=== PATIENT | female | born 1970 | race Caucasian/White ===

== ENCOUNTER 2019-01-10 13:30 | Emergency (ER) | payer BC ==
[2019-01-10 14:00] VITALS: BP 104/75
--- NOTE | 2019-01-10 14:30 | UC ---
Abdominal Pain Female HPI - HPI Summary HPI Summary: Pt presents to with 24 hours of dysuria and frequency. Pt denies back pain. Pt states today, when wiping, noted pink on the toilet tissue. Pt denies vaginal discharge, itching odor. Pt with post menopausal x 6 years. Pt reports mild lower abd discomfort - pressure. No fevers, chills. No back pain. no trauma. no fb in vagina medications reviewed this visit - History of Current Complaint Chief Complaint: UCGU Stated Complaint: URINARY COMPLAINT Time Seen by Provider: 01/10/19 14:29 Hx Obtained From: Patient Hx Last Menstrual Period: no period ?: No Onset/Duration: Gradual Onset Pain Intensity: 6 Allergies/Adverse Reactions: Allergies Allergy/AdvReac Type Severity Reaction Status Date / Time No Known Allergies Allergy Verified 01/10/19 13:55 PMH/Surg Hx/FS Hx/Imm Hx Previously Healthy: Yes - Surgical History Surgical History: Yes Surgery Procedure, Year, and Place: Tubal ligation. T&A as a child - Family History Known Family History: Positive: Non-Contributory - Social History Occupation: Employed Full-time Lives: With Family Alcohol Use: None Substance Use Type: None Smoking Status (MU): Heavy Every Day Tobacco Smoker Amount Used/How Often: 1/2 [employer] Household Exposure Type: Cigarettes Review of Systems All Other Systems Reviewed And Are Negative: Yes Constitutional: Positive: Negative Genitourinary: Positive: Dysuria, Frequency, Urgency. Negative: Hematuria, Vaginal/Penile Burning, Vaginal/Penile Itching, Vaginal/Penile Discharge, Vaginal/Penile Pain, Vaginal/Penile Tenderness Physical Exam - Summary Physical Exam Summary: Vital Signs Reviewed: Yes A+Ox3, no distress Eyes: Conjunctiva Clear ENT: Hearing grossly normal neck: supple Respiratory: Positive: No respiratory distress, No accessory muscle use Cardiovascular: skin color reflect adequate perfusion abd soft + BS no guarding ,no rebound no CVA very minimal suprapubic discomfort with direct palp Musculoskeletal Exam: WU x 4 without difficulty Neurological: Positive: Alert, ambulatory without difficulty Psychological: Positive: Normal Response To proivder Skin: Positive: no rash, no ecchymosis Triage Information Reviewed: Yes Vital Signs: Initial Vital Signs Temp 99.2 F 01/10/19 13:55 Pulse 91 01/10/19 13:55 Resp 18 01/10/19 13:55 BP 104/75 01/10/19 13:55 Pulse Ox 99 01/10/19 13:55 Abd Pain Female Course/Dx - Course Course Of Treatment: Pt presents to UC with 24 hours urinary frequency, urgency. Pt states today after urination noted some pink on toilet tissue. No oksana blood VSS Pt none concerning exam, no CVA urine consistent with uti will culture abx, pyridium, diflucan encouraged pt to f/u with pcp for routine pelvic care - if increased bleeding, pain, clots, fevers or other concerns pt to go to ED d/w postmenopausal bleeding is not normal and needs to be further evaluated pt states understanding and agreement with plan - Differential Dx/Diagnosis Provider Diagnosis: UTI (urinary tract infection) Discharge ED - Sign-Out/Discharge Documenting (check all that apply): Patient Departure All imaging exams completed and their final reports reviewed: No Studies - Discharge Plan Condition: Stable Disposition: HOME Prescriptions: Fluconazole [Diflucan 150 MG (NF)] 150 mg PO ONCE PRN #1 tab PRN Reason: vaginal yeast infection Nitrofurantoin Monohyd/M-Cryst [Macrobid 100 mg Capsule] 100 mg PO BID #14 cap Phenazopyridine TAB* [Pyridium 100 mg TAB*] 100 mg PO TID PRN #9 tab PRN Reason: burning with urination Patient Education Materials: Urinary Tract Infection in Women (ED) Referrals: Ayni Lau [Primary Care Provider] - Additional Instructions: - stay well hydrated - drink plenty of non-alcoholic, non caffinated beverages - your urine will be further tested - if you require any changes to your treatment, we will contact you - this usually take 2 days - Contact your primary doctor to arrange a follow-up appointment next week. Contact your doctor or return with questions or concerns - Take your antibiotics exactly as prescribed until gone - Take pyridium as prescribed for discomfort. This will make your urine blaze orange - this is normal - Okay to alternate ibuprofen (Advil, Motrin) and Tylenol every 3 hours for pain. Take with food - Call your doctor or return with questions or concerns - Billing Disposition and Condition Condition: STABLE Disposition: Home
== END 2019-01-10 15:02 | disposition home or self-care (01) ==
LOC: UCEAST 13:30
DX: N39.0 Urinary tract infection, site not specified (principal); F17.210 Nicotine dependence, cigarettes, uncomplicated
CPT/HCPCS: 81003; 84702; 87077; 87086; 87186; 99212; G0463